=== PATIENT | female | born 1965 | race Caucasian/White ===

== ENCOUNTER 2017-01-05 15:16 | Emergency (ER) | payer OTHER ==
[~2017-01-05] VITALS: Ht 157.5 cm; Wt 84.7 kg
[~2017-01-05 15:16] MED LIST: ASPI81TA82 PO; CALC600T44 PO; CHOL50006 PO; DOCU1CAP39 PO; HYDR1CRE TOP; LISI-515 PO; NAPR500T PO; OMEP40CA2 PO; SERT25TA83 PO; SIMV10TA PO; TAB-TAB PO
[2017-01-05 15:57] VITALS: BP 107/73; PULSE 81; RESP 16; TEMP 98.2; O2SAT 96
[2017-01-05] MEDS ORDERED: KETOROLAC TROMETHAMINE 10 MG TAB PO ONE (16:30)
[2017-01-05] MEDS ORDERED: METHOCARBAMOL 500 MG TAB PO ONE (16:30)
[2017-01-05] MEDS ORDERED: MULTTAB67 PO (16:32)
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
[2017-01-05] MEDS ORDERED: DICL75TA PO (18:18)
[2017-01-05] MEDS ORDERED: ROBA750T PO (18:18)
== END 2017-01-05 18:30 | disposition home or self-care (01) ==
LOC: PHEFT 15:16
DX: S16.1XXA Strain of muscle, fascia and tendon at neck level, initial encounter (principal); S13.4XXA Sprain of ligaments of cervical spine, initial encounter; M54.6 Pain in thoracic spine; I10 Essential (primary) hypertension; F17.200 Nicotine dependence, unspecified, uncomplicated; V49.88XA Car occupant (driver) (passenger) injured in other specified transport accidents, initial encounter; Y92.410 Unspecified street and highway as the place of occurrence of the external cause
CPT/HCPCS: 72072; 72125

== ENCOUNTER 2017-02-20 13:03 | Day surgery (SDC) | payer OTHER ==
[~2017-02-20 13:03] MED LIST changes: -ASPI81TA82 PO; -CALC600T44 PO; -CHOL50006 PO; +DICL75TA PO; -DOCU1CAP39 PO; -HYDR1CRE TOP; +MULTTAB67 PO; +ROBA750T PO; -TAB-TAB PO
[2017-02-20 15:17] VITALS: BP 133/78; PULSE 71; RESP 16; TEMP 96.4; O2SAT 99
[2017-02-20] MEDS ORDERED: LIDOCAINE HCL 1% PF 30 ML VIAL ONE (17:13)
--- NOTE | 2017-02-21 07:38 | RADRPT ---
EXAM DATE/TIME: 02/20/2017 14:25 [facility] COMPARISON: No previous studies available for comparison. EXTERNAL COMPARISON: [facility], US THYROID , Jan 16 2017, POI, CT CERVICAL SPINE,W/O CONTRAST, 07/09/2017 INDICATIONS : Right thyroid nodule. MEDICAL HISTORY : Hypertension. Stroke. SURGICAL HISTORY : Tonsillectomy. Knee surgery. ENCOUNTER: Initial ACUITY: 2 months PAIN SCORE: 0/10 LOCATION: Right neck ORGAN: Right thyroid lobe SPECIMENS: Four fine needle aspirate(s) submitted for pathologic evaluation. DEVICE: 22 gauge needle Post procedure scanning reveals no hematoma or other complication. The possibility does exist that the tissue obtained will be non-diagnostic. If the sample is non-chris gnostic a repeat biopsy or surgical biopsy may need to be performed. TECHNIQUE: 1. Ultrasound guidance for needle biopsy. 2. Needle biopsy. The risks, benefits, and alternatives to ultrasound guided needle biopsy were explained to the patien t in detail including the risk of bleeding and infection. Written and verbal informed consent was ob tained. With the patient on the ultrasound table, images were obtained. In the right mid thyroid gland there is a hypoechoic solid nodule measuring 10 x 7 x 11 mm. Overlying skin was prepped and draped in the usual sterile fashion and Lidocaine was utilized as a local anesthetic. A needle was advanced into the identified target and the number of specimens as above obtained and aguayo bmitted for pathologic evaluation. The patient tolerated the procedure well and left the ultrasound suite in stable condition. CONCLUSION: Uncomplicated ultrasound guided needle biopsy of a right thyroid nodule. Emile Olson MD on February 21, 2017 at 7:35 Board Certified Radiologist. This report was verified electronically.
== END 2017-02-20 15:25 | disposition home or self-care (01) ==
LOC: HRAD 13:03 → HRIP 13:12 → HRAD 15:25
PROVIDERS: ATTEND Family Medicine
DX: E04.1 Nontoxic single thyroid nodule (principal); I10 Essential (primary) hypertension; Z86.73 Personal history of transient ischemic attack (TIA), and cerebral infarction without residual deficits
CPT/HCPCS: 10022; 76942; 88172; 88173; 88307